=== PATIENT | male | born 1925 | race Caucasian/White ===

== ENCOUNTER 2016-07-10 07:03 | Inpatient (IN) | payer MEDICARE, OTHER ==
[2016-07-10] MEDS ORDERED: Adenosine* 3 MG/ML VIAL ONE (07:18)
[2016-07-10] MEDS ORDERED: Amiodarone 150 MG IVPREMIX* 150 MG/100 ML BAG IV ONE ×2 (07:27→08:31)
[2016-07-10] MEDS ORDERED: Hydrocortisone INJ* 100 MG VIAL ONE (07:33)
[2016-07-10] MEDS ORDERED: Amiodarone 360 MG IVPREMIX* 360 MG/200 ML BAG IV ONE ×2 (07:33→08:32)
[2016-07-10] MEDS ORDERED: Piperac/Tazob 3.375 gm in NS* 3.375 GM/100 ML BAG IVPB ONE ×3 (07:39→12:00)
[2016-07-10] MEDS ORDERED: NS 0.9% 1000 ML*IV.FLUID IV ONE (08:17)
[2016-07-10] MEDS ORDERED: Adenosine SYRINGE* 6 MG/2 ML IV PUSH ONE (08:22)
[2016-07-10 08:31] LABS: Hematocrit 45 % (42-52); Hemoglobin 14.6 g/dl (14.0-18.0); Mean Corpuscular HGB Conc 32 g/dl (31-36); Mean Corpuscular Hemoglobin 35 pg (27-31); Mean Platelet Volume 8 um3 (7.4-10.4); Red Blood Count 4.19 10^6/ul (4.0-5.4); Red Cell Distribution Width 19 % (10.5-15); White Blood Count 12.5 10^3/ul (3.5-10.8)
[2016-07-10 08:35] LABS: Add Diff/Slide Review? Slide Review Added; Comments Flag Yes; Mean Corpuscular Volume 108 fL (80-94)
[2016-07-10] MEDS ORDERED: Hydrocortisone INJ* 250 MG VIAL IV ONE (08:40)
[2016-07-10 08:41] LABS: Albumin 2.6 g/dL (3.2-5.2); BUN/Creatinine Ratio 20.8 (8-20); C Reactive Protein 22.57 mg/L (< 5.00); Calcium 8.4 mg/dL (8.6-10.3); EGFR African American 53.1 (>60); EGFR Non-African American 41.3 (>60); Globulin 3.4 g/dL (2-4); Total Bilirubin 0.9 mg/dL (0.2-1.0)
[2016-07-10 09:00] LABS: Troponin I 0.06 ng/mL (<0.04)
[2016-07-10] MEDS ORDERED: Amiodarone 360 MG IVPREMIX* 360 MG/200 ML BAG IV SCH ×2 (09:00→15:00)
[2016-07-10] MEDS: Hydrocortisone INJ* 100 MG VIAL IV SCH ×2 (09:00→20:42)
[2016-07-10 09:25] LABS: FIO2 100
[2016-07-10 09:32] LABS: PCO2 Arterial 15 mmHg (35-45)
--- NOTE | 2016-07-10 09:39 | RAD ---
Indication: Tachycardia. Single frontal view of the chest performed at 0840 hours was reviewed. Comparison is made with previous exam dated June 19, 2013. Cardiomegaly with bibasilar atelectasis is noted. Pacemaker leads are in place. No pneumothorax is noted. IMPRESSION: CARDIOMEGALY WITH BIBASILAR ATELECTASIS. NO PNEUMOTHORAX IS NOTED.
[2016-07-10 09:42] LABS: Eosinophils % 2 % (0-6); Immature Granulocytes 4 % (0-9); Macrocytosis 2+; Metamyelocytes % 1 % (0-2); Neutrophil % 74 % (38-83); Reactive Lymph % 2 % (0-6)
--- NOTE | 2016-07-10 09:54 | ED ---
Mckenna Fritz Michael, scribed for Phyllis Turcios MD on 07/10/16 at 0738 . Altered Mental Status - HPI Summary HPI Summary: 89 y/o male was BIBA to the ED presenting with AMS that started this morning. The pt reportedly was sepsis one month ago in [place], and he moved back to [facility] with his a few weeks ago. Since moving back, the pt has been at rehab and has become more confused recently. He also presents with rapid dysrhythmia and hematuria. Pt has a MOLST form showing he is a DNR. The pt is a level 5 caveat-Extremis - History Of Current Complaint Stated Complaint: GENERAL ILLNESS Hx Obtained From: Family/Curtain Stretcher Assembler - appears after initial encounter, provides more hx, EMS, Medical Records Hx From Patient Unobtainable Due To: Extremis Onset/Duration: Still Present Timing: Constant Severity Initially: Moderate Severity Currently: Moderate Character: Responsiveness Aggravating Factor(s): Unknown Alleviating Factor(s): Unknown Associated Signs And Symptoms: Negative: Negative - hematuria. dysrhythmia. AMS. 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 Denies: Hx Anticoagulant Therapy Cardiovascular History: Reports: Hx Pacemaker/ICD - PLACED 07/10/2013, Other Cardiovascular Problems/Disorders - EPISODES OF VTACH, CHEST IMPLANT TO CHECK HEARTRATE Denies: Hx Hypertension - low BP Respiratory History: Reports: Hx Sleep Apnea - uses oral appliance Denies: Hx Asthma, Hx Chronic Obstructive Pulmonary Disease (COPD) GI History: Reports: Other GI Disorders - colon polyps History: Reports: Hx Acute Renal Failure, Hx Benign Prostatic Hyperplasia Denies: Hx Renal Disease Musculoskeletal History: Reports: Hx Orthopedic Injury - (left) thumb amputation s/p injury, (left) ring finger/pinky crush injury Sensory History: Reports: Hx Contacts or Glasses, Hx Hearing Problem Denies: Hx Hearing Aid Opthamlomology History: Reports: Hx Contacts or Glasses Neurological History: Reports: Hx Dementia, Other Neuro Impairments/Disorders - memory problems Denies: Hx Seizures Psychiatric History: Denies: Hx Panic Disorder, Hx Substance Abuse - Surgical History Surgery Procedure, Year, and Place: IMPLANTABLE EVENT MONITOR IN HEART (OK'ED - SAFE 1.5 - DR BARRETO) - PT TO SEE OPS MANAGER PRIOR TO EXAM TO HAVE MONITOR REVIEWED. Patient saw customer service dispatcher on 02/12/13. PITUITARY REMOVED - 1969' AND 1993. 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 Hx Anesthesia Reactions: - unknown Infectious Disease History: Denies: Hx Hepatitis, Hx Human Immunodeficiency Virus (HIV) - Family History Known Family History: Positive: None - pt state negative Negative: Cardiac Disease, Hypertension, Diabetes - Social History Occupation: Retired Lives: With Family Alcohol Use: None Hx Substance Use: No Substance Use Type: Reports: None Hx Tobacco Use: No Smoking Status (MU): Never Smoked Tobacco Have You Smoked in the Last Year: No Review of Systems - ROS Summary Review of Systems Summary: limited due to level 5 caveat Positive: Other - dysrhythmia Positive: Shortness Of Breath - apparent Positive: hematuria Positive: Other - mottled Neurological: Other - AMS All Other Systems Reviewed And Are Negative: Yes Physical Exam Triage Information Reviewed: Yes Vital Signs On Initial Exam: Initial Vitals Temp Pulse Resp BP Pulse Ox 99.1 F 166 33 126/105 94 07/10/16 07:25 07/10/16 07:25 07/10/16 07:25 07/10/16 07:25 07/10/16 07:25 Vital Signs Reviewed: Yes Completion Of Physical Exam Limited Due To: Extremis, Level 5 Appearance: Positive: Ill-Appearing Skin: Positive: Dry, Mottled @ - extrem and neck Eyes: Positive: PHILIPP ENT: Positive: Other - oral appliance, dry mucosa Respiratory/Lung Sounds: Positive: Decreased Breath Sounds, Rhonchi, Other - accessory muscs of resp Cardiovascular: Positive: Tachycardia - irreg, narrow complex Abdomen Description: Positive: Soft. Negative: Distended, Pulsatile Mass Male Genital Exam: Positive: other - blood at urethra meatus Musculoskeletal: Positive: Other - using all accessory muscles. moving right extremity. Neurological: Positive: Other - nonverbal, respiratory distress. Negative: Alert, Oriented to Person Place, Time Psychiatric: Positive: Other - unresponsive, in extremis due to respiratory distress and rapid afib Diagnostics - Vital Signs Vital Signs Temp Pulse Resp BP Pulse Ox 07/10/16 07:40 221/146 07/10/16 07:35 202/172 07/10/16 07:30 99.1 F 155 33 152/137 75 07/10/16 07:25 99.1 F 166 33 126/105 94 - Laboratory Lab Results: Lab Results 07/10/16 07/10/16 07/10/16 Range/Units 07:30 07:30 07:30 WBC 12.5 H (3.5-10.8) 10^3/ul RBC 4.19 (4.0-5.4) 10^6/ul Hgb 14.6 (14.0-18.0) g/dl Hct 45 (42-52) % MCV 108 H (80-94) fL MCH 35 H (27-31) pg MCHC 32 (31-36) g/dl RDW 19 H (10.5-15) % Plt Count 188 (150-450) 10^3/ul MPV 8 (7.4-10.4) um3 Immature Gran % (Auto) 4 (0-9) % Neut % (Auto) 78.5 (38-83) % Lymph % (Auto) 20.7 L (25-47) % [place] % (Auto) 0.3 L (1-9) % Eos % (Auto) 0.3 (0-6) % Baso % (Auto) 0.2 (0-2) % Absolute Neuts (auto) 9.8 H (1.5-7.7) 10^3/ul Absolute Lymphs (auto) 2.6 (1.0-4.8) 10^3/ul Absolute Monos (auto) 0 (0-0.8) 10^3/ul Absolute Eos (auto) 0 (0-0.6) 10^3/ul Absolute Basos (auto) 0 (0-0.2) 10^3/ul Absolute Nucleated RBC 0.02 10^3/ul Neutrophils % 74 (38-83) % Band Neutrophils % 3 (0-8) % Lymphocytes % 16 L (25-47) % Reactive Lymphs % 2 (0-6) % Monocytes % 2 (0-13) % Eosinophils % 2 (0-6) % Metamyelocytes % 1 (0-2) % Nucleated RBC % 0.1 Normal RBC Morphology Not Reportable Macrocytosis 2+ INR (Anticoag Therapy) 2.01 H (0.89-1.11) APTT 29.6 (26.0-36.3) seconds Fibrinogen 303 (110.8-404.3) mg/dL Sodium 136 (133-145) mmol/L Potassium 4.0 (3.5-5.0) mmol/L Chloride 102 (101-111) mmol/L Carbon Dioxide 18 L (22-32) mmol/L Anion Gap 16 H (2-11) mmol/L BUN 33 H (6-24) mg/dL Creatinine 1.59 H (0.67-1.17) mg/dL Est GFR ( Amer) 53.1 (>60) Est GFR (Non-Af Amer) 41.3 (>60) BUN/Creatinine Ratio 20.8 H (8-20) Glucose 119 H (70-100) mg/dL Lactic Acid (0.5-2.0) mmol/L Calcium 8.4 L (8.6-10.3) mg/dL Total Bilirubin 0.90 (0.2-1.0) mg/dL AST 40 H (13-39) U/L ALT 55 H (7-52) U/L Alkaline Phosphatase 133 H (34-104) U/L Total Creatine Kinase 40 (10-223) U/L Troponin I 0.06 H* (<0.04) ng/mL C-Reactive Protein 22.57 H (< 5.00) mg/L B-Natriuretic Peptide ( - 100) pg/mL Total Protein 6.0 L (6.4-8.9) g/dL Albumin 2.6 L (3.2-5.2) g/dL Globulin 3.4 (2-4) g/dL Albumin/Globulin Ratio 0.8 L (1-3) 07/10/16 07/10/16 Range/Units 07:30 07:30 WBC (3.5-10.8) 10^3/ul RBC (4.0-5.4) 10^6/ul Hgb (14.0-18.0) g/dl Hct (42-52) % MCV (80-94) fL MCH (27-31) pg MCHC (31-36) g/dl RDW (10.5-15) % Plt Count (150-450) 10^3/ul MPV (7.4-10.4) um3 Immature Gran % (Auto) (0-9) % Neut % (Auto) (38-83) % Lymph % (Auto) (25-47) % [place] % (Auto) (1-9) % Eos % (Auto) (0-6) % Baso % (Auto) (0-2) % Absolute Neuts (auto) (1.5-7.7) 10^3/ul Absolute Lymphs (auto) (1.0-4.8) 10^3/ul Absolute Monos (auto) (0-0.8) 10^3/ul Absolute Eos (auto) (0-0.6) 10^3/ul Absolute Basos (auto) (0-0.2) 10^3/ul Absolute Nucleated RBC 10^3/ul Neutrophils % (38-83) % Band Neutrophils % (0-8) % Lymphocytes % (25-47) % Reactive Lymphs % (0-6) % Monocytes % (0-13) % Eosinophils % (0-6) % Metamyelocytes % (0-2) % Nucleated RBC % Normal RBC Morphology Macrocytosis INR (Anticoag Therapy) (0.89-1.11) APTT (26.0-36.3) seconds Fibrinogen (110.8-404.3) mg/dL Sodium (133-145) mmol/L Potassium (3.5-5.0) mmol/L Chloride (101-111) mmol/L Carbon Dioxide (22-32) mmol/L Anion Gap (2-11) mmol/L BUN (6-24) mg/dL Creatinine (0.67-1.17) mg/dL Est GFR ( Amer) (>60) Est GFR (Non-Af Amer) (>60) BUN/Creatinine Ratio (8-20) Glucose (70-100) mg/dL Lactic Acid 10.4 H* (0.5-2.0) mmol/L Calcium (8.6-10.3) mg/dL Total Bilirubin (0.2-1.0) mg/dL AST (13-39) U/L ALT (7-52) U/L Alkaline Phosphatase (34-104) U/L Total Creatine Kinase (10-223) U/L Troponin I (<0.04) ng/mL C-Reactive Protein (< 5.00) mg/L B-Natriuretic Peptide 470 H ( - 100) pg/mL Total Protein (6.4-8.9) g/dL Albumin (3.2-5.2) g/dL Globulin (2-4) g/dL Albumin/Globulin Ratio (1-3) Result Diagrams: 07/10/16 07:30 07/10/16 07:30 Lab Statement: Any lab studies that have been ordered have been reviewed, and results considered in the medical decision making process. - EKG EK EKG Rhythm: Atrial Fibrillation - 162 bpm EKG Interpretation: nml QTc-441. nml QT-268. QRS:-22. st depression. Altered Mental Statu Course/Dx - Course Course Of Treatment: Dr. Jessica ([facility]hold [facility]) consulted with the patient and accepts the patient. Patient was given 150mg amiodarone and will be brought to the ICU. Critical care not documented by ED physician, as Dr. Jessica in the room within minutes and assumes care of this critial patient. - Diagnoses Discharge Diagnoses: Rapid atrial fibrillation, Respiratory distress, acute, Hematuria - Provider Notifications Instructed by Provider To: Admit As Inpatient Discharge - Discharge Plan Condition: Critical Disposition: ADMITTED TO [facility] Discharge Disposition Comment: Dr. Jessica accepts pt as admission. The documentation as recorded by the Mckenna justice Michael accurately reflects the service I personally performed and the decisions made by , Phyllis Turcios MD.
[2016-07-10] MEDS: Piperac/Tazob 3.375 gm in NS* 3.375 GM/100 ML BAG IVPB SCH ×2 (12:15→19:45)
[2016-07-10] MEDS: fentaNYL* 50 MCG/ML 2 ML VIAL (100 MCG VIAL) IV PRN ×3 (12:44→18:05)
--- NOTE | 2016-07-10 13:30 | HP ---
ADMISSION HISTORY AND PHYSICAL: DATE OF ADMISSION: 07/10/16 REASON FOR ADMISSION: Possible septic shock. 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 On arrival, the patient was in rapid atrial fibrillation and was also hypotensive and hypoxic. Was placed on high-flow humidified nasal oxygen and was given intravenous fluids as well as amiodarone for the heart rate. White count was slightly elevated, and the presumptive diagnosis of sepsis/possible septic shock from a UTI, was entertained and the patient was given a dose of Zosyn. The patient is DNR/DNI per a living will ( according to the ). Blood pressure was labile, and (because of the history of hypopituitarism), the patient was given 200 mg of hydrocortisone IV, and was brought to the ICU. OUTPATIENT MEDICATIONS: 1. Cholecalciferol 1000 units daily. 2. Finasteride 5 mg daily. 3. Furosemide 40 mg daily. 4. Hydrocortisone 20 mg three times daily. 5. Levothyroxine 75 mcg daily. 6. Pravastatin 10 mg daily. 7. Bactrim DS b.i.d. started on June 26 to last for 14 days. 8. Coumadin 5 mg every other day. 9. Hydrocortisone as mentioned. ALLERGIES: There are no known drug allergies. SOCIAL HISTORY: The patient is and has lived with his until a few months ago, when he was placed in the half-way because of inability to care for himself. There is no known history of alcohol or drug abuse. REVIEW OF SYSTEMS: Unobtainable. PHYSICAL EXAMINATION GENERAL: The patient was tachypneic and unresponsive to verbal commands. VITAL SIGNS: Temp was 99.1 temporal, heart rate 26, blood pressure 98/50, O2 sat 90% on 100% FiO2 by high-flow humidified nasal cannula. HEENT: Pupils mid-position and responsive. Corneals intact bilaterally. No facial asymmetry. NECK: Supple. No apparent jugular venous distention or masses. LUNGS: Coarse rhonchi bilaterally. No crackles. CARDIAC: Irregularly irregular rhythm with 1-2/6 early systolic murmur heard throughout the precordium. ABDOMEN: Not distended. Bowel sounds hypoactive. EXTREMITIES: Warm. No cyanosis or edema. NEUROLOGIC: Difficult to complete, but there were no apparent focal findings or cranial nerve deficits. OTHER: Tucker catheter was in place and there was an obstructive thrombus noted in the catheter. DIAGNOSTIC STUDIES/LAB DATA: Significant for a white count of 12.5, INR of 2, serum lactate of 10.4 with a bicarb of 18 with an anion gap of 16. BUN was 33 and creatinine 1.6. Albumin was 2.6. Chest x-ray showed bilateral pleural effusions, but no apparent infiltrates. Urinalysis is pending. EKG showed atrial fibrillation. OVERALL IMPRESSION: At this point, septic shock is the most likely diagnosis, and the urine is the most likely source. The lactate of 10.4 carries a poor prognosis. Although one must consider an intracerebral hemorrhage because of the anticoagulation, there are no focal findings, and thus this seems unlikely. MANAGEMENT PLAN: The plan will consist primarily of fluids, antibiotics, pressors if necessary, and steroids because of the history of hypopituitarism. We will replace the Synthroid and vitamin D, but we will start that tomorrow. We will check serial lactates to follow progress. I do not think a head CT is necessary at this time, particularly with the patient being unstable. Prognosis is poor, and the patient's has been informed of such. CRITICAL CARE TIME: 75 minutes. [id number]/CPS #: [id number] MTDD
[2016-07-10] MEDS ORDERED: HYDROmorphone* 1 MG/ML 1 ML SYR IV PRN (18:57)
[2016-07-10] MEDS ORDERED: HYDROmorphone* 1 MG/ML 1 ML SYR IV ONE (19:00)
[2016-07-10] MEDS ORDERED: Norepinephrine 16MCG/ML IVPRE* 4,000 MCG/250 ML BAG IV ONE (20:48)
[2016-07-10] MEDS ORDERED: Norepinephrine 16MCG/ML IVPRE* 4,000 MCG/250 ML BAG IV SCH (23:00)
[2016-07-11] MEDS: HYDROmorphone* 1 MG/ML 1 ML SYR IV PRN ×5 (00:38→22:49)
[2016-07-11] MEDS: Piperac/Tazob 3.375 gm in NS* 3.375 GM/100 ML BAG IVPB SCH ×3 (03:59→20:19)
[2016-07-11 05:41] LABS: Hematocrit 39 % (42-52); Hemoglobin 12.4 g/dl (14.0-18.0); Mean Corpuscular HGB Conc 32 g/dl (31-36); Mean Corpuscular Hemoglobin 34 pg (27-31); Mean Platelet Volume 9 um3 (7.4-10.4); Red Cell Distribution Width 20 % (10.5-15)
[2016-07-11 05:51] LABS: Comments Flag Yes
[2016-07-11 05:52] LABS: Mean Corpuscular Volume 108 fL (80-94); White Blood Count 41.9 10^3/ul (3.5-10.8)
[2016-07-11 06:01] LABS: Calcium 7.6 mg/dL (8.6-10.3); EGFR African American 53.1 (>60); EGFR Non-African American 41.3 (>60); Potassium 4.3 mmol/L (3.5-5.0)
--- NOTE | 2016-07-11 07:57 | RAD ---
HISTORY: Hypoxia COMPARISONS: July 10, 2016 VIEWS:1: Single frontal portable view of the chest at 4:43 AM FINDINGS: LINES AND TUBES: Left-sided pacemaker is noted CARDIOMEDIASTINAL SILHOUETTE: The cardiac silhouette is enlarged. The cardiomediastinal silhouette is otherwise normal for portable technique. PLEURA: The costophrenic angles are sharp. No pleural abnormalities are noted. LUNG PARENCHYMA: There is a mild diffuse reticular pattern with indistinct pulmonary vessels. There is improved aeration of the right lower lung. There is linear opacification left lower lung ABDOMEN: The upper abdomen is clear. There is no subphrenic gas. BONES AND SOFT TISSUES: No bone or soft tissue abnormalities are noted. IMPRESSION: 1. CARDIOMEGALY. 2. MILD PULMONARY INTERSTITIAL EDEMA. 3. LINEAR ATELECTASIS OF THE LEFT LUNG BASE
[2016-07-11] MEDS: Levothyroxine INJ* 100 MCG/5 ML VIAL IV SCH (08:09)
[2016-07-11] MEDS: Hydrocortisone INJ* 100 MG VIAL IV SCH ×2 (08:10→20:32)
[2016-07-11 08:55] LABS: Erythrocyte Sed Rate 23 mm/Hr (0-40)
[2016-07-11] MEDS ORDERED: Metoprolol Tartrate IV* 1 MG/ML 5 ML VIAL IV PRN (13:54)
--- NOTE | 2016-07-11 14:10 | PN ---
Critical Care Services: Mental status still poor, but now off amiodarone and levophed. Vital Signs: Temp Pulse Resp BP SpO2 FiO2 97.6 F 76 17 92/67 97 80 Physical Exam: Gen:Unresponsive to verbal commands, but opens eyes HEENT:No facial asymmetry Lungs:Scattered rhonchi Extremities:Warm. +kneecap cyanosis. No edema. Neuro:Opens eyes occasionally to shouted commands. Fluid Balance (Past 24 Hours): 07/11/16 06:59 Intake Total 7016 Output Total 810 Balance +6206 Weight 213 lb 3oz Intake: IV Fluids 6195 ABX - PIPERACILLIN 107 LR 6088 IVPB ABX - PIPERACILLIN Medicated IV 821 CC - Norepinephrine/ 258 Levophed amiodarone 563 Output: Tucker 810 Other: Estimated Void Small # Bowel Movements Estimated Stool Amount Labs: Laboratory Results - last 24 hr 07/10/16 07/10/16 07/11/16 13:08 13:45 05:25 Sodium 137 Potassium 4.3 Chloride 107 Carbon Dioxide 17 BUN 35 Creatinine 1.59 Glucose 170 H Lactic Acid 7.2 Influenza A (Rapid) Negative Influenza B (Rapid) Negative 07/11/16 05:25 WBC 41.9 RBC 3.60 Hgb 12.4 Hct 39 L MCV 108 MCH 34 H MCHC 32 RDW 20 H Plt Count 164 MPV 9 ESR 23 Lactic Acid 6.5 Studies: E. coli in 2 blood cultures Nutrition: NPO Impression: Gram-negative septicemia - probably from UTI. Persistent lactic acidosis is disturbing. ? could this patient have thiamine deficiency (encephalopathy plus unexplained lactic acidosis)? Plan: Continue current antibiotic Rx, and start yu,ine - 100 mg daily. if patient does not improve MS over next 24 hrs, will do CT scan. Critical Care Time: 35 minutes
[2016-07-11] MEDS: Thiamine IV* 100 MG/ML 2 ML VIAL IV SCH (14:15)
[2016-07-12] MEDS: Piperac/Tazob 3.375 gm in NS* 3.375 GM/100 ML BAG IVPB SCH ×3 (03:50→20:14)
[2016-07-12] MEDS: HYDROmorphone* 1 MG/ML 1 ML SYR IV PRN ×2 (05:05→18:38)
[2016-07-12] MEDS: Levothyroxine INJ* 100 MCG/5 ML VIAL IV SCH (05:40)
[2016-07-12 06:16] LABS: Comments Flag Yes; Hematocrit 37 % (42-52); Hemoglobin 12.1 g/dl (14.0-18.0); Mean Corpuscular HGB Conc 32 g/dl (31-36); Mean Corpuscular Hemoglobin 35 pg (27-31); Mean Corpuscular Volume 107 fL (80-94); Mean Platelet Volume 9 um3 (7.4-10.4); Red Blood Count 3.49 10^6/ul (4.0-5.4); Red Cell Distribution Width 20 % (10.5-15)
[2016-07-12 06:26] LABS: BUN/Creatinine Ratio 29.3 (8-20); Blood Urea Nitrogen 34 mg/dL (6-24); CO2 Carbon Dioxide 21 mmol/L (22-32); Calcium 7.9 mg/dL (8.6-10.3); Chloride 110 mmol/L (101-111); EGFR African American 76.4 (>60); EGFR Non-African American 59.4 (>60); Glucose 97 mg/dL (70-100); Sodium 139 mmol/L (133-145)
[2016-07-12] MEDS: Thiamine IV* 100 MG/ML 2 ML VIAL IV SCH (07:44)
[2016-07-12] MEDS: Hydrocortisone INJ* 100 MG VIAL IV SCH ×2 (07:44→20:14)
--- NOTE | 2016-07-12 09:49 | PN ---
Critical Care Services: New Information: the E.coli in this case is ESBL-producing. The organism, however, is sensitive to the Zosyn being used as Rx. The patient remains afebrile, and is more alert today (answers questions now). Vital Signs: Temp Pulse Resp BP SpO2 FiO2 97.6 F 94 11 122/62 96 80 Physical Exam: Gen:Much more alert today. Opens eyes and speaks in reponse to verbal commands. Lungs:Occasional coarse rhonchi Extremities: Warm. 1+edema. Fluid Balance (Past 24 Hours): 07/12/16 06:59 Intake Total 1839 Output Total 800 Balance +1039 Weight 211 lb Intake: IV Fluids 1396 ABX - PIPERACILLIN 118 LR 1233 NS (0.9%) 45 IVPB 320 ABX - PIPERACILLIN 200 LR 80 NS (0.9%) 40 Medicated IV 123 CC - Norepinephrine/ 82 Levophed amiodarone 41 Oral 0 Output: Tucker 800 Other: Estimated Void # Bowel Movements 1 Estimated Stool Amount Small Labs: 07/12/16 07/12/16 05:29 06:38 WBC 35 Hgb 12.1 Hct 37 Plt Count 131 Sodium 139 Potassium TNP 2.8 L Chloride 110 Carbon Dioxide 21 BUN 34 Creatinine 1.16 Glucose 97 Lactic Acid 2.1 Calcium 7.9 C-React Prot High Sens 253.77 NOTE: Lactate was 10.4 on admission. Studies: None today Nutrition: Attempting oral feedings Impression: E. coli septicemia with ESBL-producing organism - appears to be responding to Rx with Pip-Tazo, and lactate has (almost) normalized since admission. Chronic problems include: 1. Dementia 2. Afib 3. 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 Plan: 1. Contact isolation 2. Correct hypokalemia with IV KCL and MgSO4. 3. I have not restarted coumadin (for the AFIB), and do not feel this should be continued (in light of patient's dementia). Critical Care Time: 35 minutes
[2016-07-12] MEDS ORDERED: Magnesium Sulfate 2 GM IV* 2 GM/50 ML BAG IVPB ONE (09:51)
[2016-07-12] MEDS ORDERED: Magnesium Sulfate 2 GM IV* 2 GM/50 ML BAG ONE (09:53)
[2016-07-12] MEDS: KCL 20 MEQ/100 ML IVPREMIX* 20 MEQ/100 ML BAG IV SCH ×4 (11:59→17:24)
[2016-07-12] MEDS ORDERED: KCL 20 MEQ/100 ML IVPREMIX* 20 MEQ/100 ML BAG ONE (17:17)
[2016-07-13] MEDS: Piperac/Tazob 3.375 gm in NS* 3.375 GM/100 ML BAG IVPB SCH ×3 (03:38→20:52)
[2016-07-13] MEDS: Levothyroxine INJ* 100 MCG/5 ML VIAL IV SCH (06:17)
[2016-07-13 06:38] LABS: Hematocrit 39 % (42-52); Hemoglobin 12.5 g/dl (14.0-18.0); Mean Corpuscular HGB Conc 32 g/dl (31-36); Mean Corpuscular Hemoglobin 35 pg (27-31); Mean Platelet Volume 9 um3 (7.4-10.4); Red Blood Count 3.61 10^6/ul (4.0-5.4); Red Cell Distribution Width 20 % (10.5-15)
[2016-07-13 06:39] LABS: Comments Flag Yes; Mean Corpuscular Volume 108 fL (80-94)
[2016-07-13 06:40] LABS: White Blood Count 30.7 10^3/ul (3.5-10.8)
[2016-07-13 06:55] LABS: BUN/Creatinine Ratio 37.1 (8-20); Blood Urea Nitrogen 39 mg/dL (6-24); CO2 Carbon Dioxide 24 mmol/L (22-32); Calcium 8.4 mg/dL (8.6-10.3); Chloride 100 mmol/L (101-111); EGFR African American 85.7 (>60); EGFR Non-African American 66.7 (>60); Glucose 62 mg/dL (70-100); Sodium 129 mmol/L (133-145)
--- NOTE | 2016-07-13 08:28 | RAD ---
HISTORY: Hypoxia COMPARISONS: July 11, 2016 VIEWS:1: Single frontal portable view of the chest at 7:45 AM FINDINGS: LINES AND TUBES: There is left-sided pacemaker CARDIOMEDIASTINAL SILHOUETTE: The cardiac silhouette is enlarged. The cardiomediastinal silhouette is otherwise normal for portable technique. PLEURA: The costophrenic angles are sharp. No pleural abnormalities are noted. LUNG PARENCHYMA: The lungs are clear. ABDOMEN: The upper abdomen is clear. There is no subphrenic gas. BONES AND SOFT TISSUES: No bone or soft tissue abnormalities are noted. IMPRESSION: CARDIOMEGALY
--- NOTE | 2016-07-13 08:42 | PN ---
Subjective Date of Service: 07/13/16 Interval History: This is an 89 yo gentleman transferred from the ICU yesterday evening where he was treated for septic shock secondary to ESBL EColi septicemia. Patient was encephalopathic for the first 2 days of his admission and LOC began to improve yesterday. Patient was quite restless overnight, pulling at his Tucker catheter. He had an episode of desaturation overnight, attempted support with CPAP, which patient removed from his face. He was also noted to be hypothermic with temp 96.6, bearhugger was placed, but it was not tolerated. Patient failed a swallow eval yesterday. This am, he is requesting a glass of water. Objective Active Medications: Fentanyl Citrate (Fentanyl*) 50 mcg IV Q2H PRN PRN Reason: PAIN Last Admin: 07/10/16 18:05 Dose: 50 mcg Hydrocortisone Sodium Succinate (Solu-Cortef*) 100 mg IV DAILY ANGEL LUIS Hydromorphone HCl (Dilaudid Iv*) 1 mg IV Q2H PRN PRN Reason: PAIN Last Admin: 07/12/16 18:38 Dose: 1 mg Norepinephrine Bitartrate (Levophed 16 Mcg/Ml Premix Bag*) 4,000 mcg in 250 mls @ 0 mls/hr IV .INITIAL RATE ANGEL LUIS; 0 MCG/MIN PRN Reason: Protocol Last Admin: 07/11/16 04:48 Dose: 26 mls/hr Piperacillin Sod/Tazobactam Sod (Zosyn 3.375 Gm In Ns Premix*) 3.375 gm in 100 mls @ 25 mls/hr IVPB Q8H ANGEL LUIS Last Admin: 07/13/16 03:38 Dose: 25 mls/hr Lactated Ringer's (Lactated Ringers 1000 Ml Bag*) 1,000 mls @ 75 mls/hr IV PER RATE ANGEL LUIS Levothyroxine Sodium (Synthroid Inj*) 37.5 mcg IV 0600 ANGLE LUIS Last Admin: 07/13/16 06:17 Dose: Not Given Metoprolol Tartrate (Lopressor Iv*) 5 mg IV Q6H PRN PRN Reason: TACHYCARDIA Thiamine HCl (Vitamin B1 Iv*) 100 mg IV DAILY ANGEL LUIS Last Admin: 07/12/16 07:44 Dose: 100 mg Vital Signs: Temp Pulse Resp BP Pulse Ox 97.2 F 93 14 126/79 95 07/13/16 06:25 07/13/16 08:18 07/13/16 08:18 07/13/16 08:18 07/13/16 08:27 Oxygen Devices in Use Now: Nasal Cannula Appearance: Elderly male, alert, requests a glass of water, doesn't completely answer all questions Ears/Nose/Mouth/Throat: - - MM appear dry Neck: NL Appearance and Movements; NL JVP Respiratory: Symmetrical Chest Expansion and Respiratory Effort, Clear to Auscultation Cardiovascular: NL Sounds; No Murmurs; No JVD, RRR Extremities: No Edema Skin: - - skin appears slightly dry Neurological: - - alert, but not oriented, confused and appears slightly uncomfortable Result Diagrams: 07/13/16 03:30 07/13/16 03:30 Additional Lab and Data: Vital Signs: Temp Pulse Resp BP Pulse Ox 97.2 F 93 14 126/79 95 07/13/16 06:25 07/13/16 08:18 07/13/16 08:18 07/13/16 08:18 07/13/16 08:27 Microbiology and Other Data: Microbiology 07/10/16 13:45 Nasal Screen MRSA (PCR)(CINTHIA) - Final Nasal Mrsa Negative 07/10/16 13:45 Influenza Types A,B Antigen (CINTHIA) - Final Nasal Specimen received for Influenza A/B Molecular testing Diagnostic Imaging: CXR 07/13 - NAD, cardiomegaly Assess/Plan/Problems-Billing Assessment: - Patient Problems (1) Septic shock Comment: Resolved Lactic acidosis has finally resolved (2) E. coli septicemia Comment: ESBL producing organism Likely urinary origin, although urine culture has not been completed Will repeat blood cultures tomorrow Cont Zosyn (3) Hypoxia Comment: Appears slightly hypovolemic CXR and lung exam clear Will obtain echocardiogram (4) RICHARD (acute kidney injury) Comment: resolving Secondary to sepsis (5) Encephalopathy Comment: Improving Likely toxic secondary to sepsis (6) Dysphagia Comment: Likely related to resolving encephalopathy Failed swallow evaluation with speech therapy yesterday Patient will be re-evaluated today Maintain NPO status at this time (7) Atrial fibrillation Comment: Rate controlled Anticoagulation has been held at admission Question resuming anticoagulation due to bleeding risk related to fall risk secondary to dementia (8) Postoperative hypopituitarism Comment: Receiving stress dose hydrocortisone Will start to taper hydrocortisone (9) BPH (benign prostatic hyperplasia) Comment: Tucker in place with frequent UTIs Status and Disposition: Inpatient
[2016-07-13] MEDS: Hydrocortisone INJ* 100 MG VIAL IV SCH (09:09)
[2016-07-13] MEDS: Thiamine IV* 100 MG/ML 2 ML VIAL IV SCH (09:09)
[2016-07-13] MEDS: HYDROmorphone* 1 MG/ML 1 ML SYR IV PRN (13:28)
[2016-07-13 16:51] LABS: PCO2 Arterial 33 mmHg (35-45)
--- NOTE | 2016-07-13 17:23 | ECHO ---
Patient: PHANI BUENROSTRO [facility] Rec#: [id number] : 1925 Date: 07/13/2016 Age: 89y Height: 185.42 cm / 73.0 in Weight: 95.71 kg / 210.9 lbs Sex: M BSA: 2.2 Room#: 403 Admit Date#: 07/10/2016 Type: Inpatient Referring: Thee Cage Reading: Bladimir Crenshaw MD Marketing Services Manager: Jane Whiteside RDCS,RDMS Marketing Services Manager: Lucita Cheney CC: Gonzalo Kan MD Transthoracic Echocardiogram Indication: Hypoxia, a-fib BP: 126/79 HR: 84 Rhythm: A-Fib Indications Atrial Fibrillation Findings History: A-fib, hypopituitarism, 1-2/6 early systolic murmur. Technical Comments: The study quality is fair. The study was technically limited due to the patient's inability to lay in the left lateral decubitus position. Completed at 1530. Left Ventricle: The left ventricular chamber size is normal. Mild to moderate concentric left ventricular hypertrophy is observed. There is diffuse global hypokinesis of the left ventricle. There is severely decreased left ventricular systolic function. The estimated ejection fraction is 20-25%. The assessment of diastolic function is non-diagnostic. Left Atrium: The left atrium is severely dilated. Right Ventricle: The right ventricular cavity size is normal. The right ventricular global systolic function is mildly to moderately reduced. Right Atrium: The right atrium is moderate to severely dilated. Aortic Valve: The aortic valve is trileaflet. The aortic valve leaflets are moderately thickened. There is evidence of aortic sclerosis without stenosis. There is a trace of aortic regurgitation. There is no evidence of aortic stenosis. Mitral Valve: The mitral valve leaflets are moderately thickened. There is mild mitral valve prolapse. There is moderate mitral regurgitation. Central and eccentric jets. The MR may be moderate to severe. There is no evidence of mitral stenosis. Tricuspid Valve: The tricuspid valve leaflets are normal. There is moderate tricuspid regurgitation. The right ventricular systolic pressure is estimated at 39 mmHg. It may be underestimated; IVC not visualized. There is evidence of mild pulmonary hypertension. There is no tricuspid stenosis. Pulmonic Valve: The pulmonic valve appears normal. There is mild pulmonic regurgitation. There is no pulmonic stenosis. Pericardium: There is no significant pericardial effusion. A pericardial fat pad is visualized. Aorta: There is mild dilatation of the ascending aorta. There is no dilatation of the aortic arch. There is mild dilatation of the aortic root. Pulmonary Artery: The main pulmonary artery appears normal. Venous: The venous system is not well visualized. The inferior vena cava is not visualized. Summary: There was not any prior study for comparison. Conclusions Atrial fibrillation. Mild to moderate concentric left ventricular hypertrophy is observed. There is diffuse global hypokinesis of the left ventricle. There is severely decreased left ventricular systolic function. The estimated ejection fraction is 20-25%. The left atrium is severely dilated. The right atrium is moderate to severely dilated. There is evidence of aortic sclerosis without stenosis. There is a trace of aortic regurgitation. There is moderate mitral regurgitation; Central and eccentric jets. The MR may be moderate to severe. There is moderate tricuspid regurgitation. There is mild pulmonic regurgitation. There is mild dilatation of the ascending aorta. The right ventricular systolic pressure is estimated at 39 mmHg. It may be underestimated; IVC not visualized. Measurements Name Value Normal Range RVIDd (AP) 2D 2.45 cm (0.9 - 2.6) RVDdMajor (2D) 3.3 cm (2.2 - 4.4) RAd ISD 4CH 6 cm (3.4 - 4.9) RA (A4C)W 5.9 cm (2.9 - 4.6) IVSd (2D) 1.3 cm (0.6 - 1) LVPWd (2D) 1.3 cm (0.6 - 1) LVIDd (2D) 4.7 cm (3.6 - 5.4) LVIDs (2D) 4.55 cm - LV FS (2D) 4 % (25 - 45) Aortic Annulus 2.3 cm (1.4 - 2.6) Ao root diameter (2D) 3.8 cm (2.1 - 3.5) Ascending Ao 3.6 cm (2.1 - 3.4) Aortic arch 3 cm (1.8 - 3.4) LA dimension (AP) 2D 4.8 cm (2.3 - 3.8) LAd ISD 4CH 6.5 cm (2.9 - 5.3) LA ISD 4CH W 5.2 cm (2.5 - 4.5) Name Value Normal Range LA ESV SP 4CH (A/L) 138 ml - LA ESV SP 2CH (A/L) 126 ml - LA ESV BP (A/L) 136 ml - LA ESV BP (A/L) index 61.65 ml/m2 - LA ESV SP 4CH (MOD) 130 ml - LA ESV SP 2CH (MOD) 118 ml - Name Value Normal Range MV E-wave Vmax 0.66 m/sec - MV deceleration time 203 msec - LV septal e' Vmax 0.06 m/sec - LV lateral e' Vmax 0.07 m/sec - LV E:e' septal ratio 11 ratio - LV E:e' lateral ratio 9.43 ratio - Name Value Normal Range AV Vmax 0.67 m/sec - AV VTI 16.68 cm - AV peak gradient 2.3 mmHg - AV mean gradient 1.4 mmHg - LVOT Vmax 0.53 m/sec - LVOT VTI 10.56 cm - LVOT peak gradient 1.15 mmHg - LVOT mean gradient 0.72 mmHg - SV LVOT 56.6 ml - DEE Vmax 0.4 m/sec - Name Value Normal Range MR Vmax 4.7 m/sec - MR VTI 144 cm - Name Value Normal Range TR Vmax 2.78 m/sec - TR peak gradient 31 mmHg - RVSP 39 mmHg - Name Value Normal Range PV Vmax 0.51 m/sec - PV peak gradient 1.06 mmHg -
--- NOTE | 2016-07-13 17:35 | RAD ---
INDICATION: Possible aspiration. COMPARISON: Comparison is made with a prior chest x-ray study from July 13, 2016. TECHNIQUE: A portable view of the chest was obtained. FINDINGS: There is a transvenous pacemaker present. The heart is moderately enlarged and unchanged from the prior exam. The lungs are underinflated. There is minimal increased density at the right lung base most consistent with atelectasis. No pleural effusion is seen. IMPRESSION: EXPIRATORY EXAM, SMALL RIGHT BASILAR INFILTRATE SUGGESTIVE OF ATELECTASIS.
[2016-07-13] MEDS ORDERED: HYDROmorphone* 1 MG/ML 1 ML SYR IV PRN (18:00)
--- NOTE | 2016-07-13 18:06 | PN ---
Hospitalist Progress Note Patient received Dilaudid in early afternoon and became quite somnolent with some change to his respiratory pattern. ABG and CXR were ordered. ABG showed no CO2 retention, essentially WNL. CXR suggested possible small R basilar infiltrate. Patient is currently on Zosyn which would adequately cover most aspiration pathogens. Will plan to repeat labs in am. Somnolence likely due to Dilaudid, no significant respiratory compromise. Briefly discussed wishes with patient's , Sandra. She was interested in learning more about Hospice services, but would like his care to continue unchanged at this time and return to [facility] for continued rehab when appropriate and then consider Hospice at that time. Had a zoe discussion with her that he may not recover to his prior level of function despite maximum intervention, she acknowledged that.
[2016-07-13] MEDS ORDERED: Haloperidol INJ IV/IM* 5 MG/ML AMP IV ONE (20:28)
[2016-07-13] MEDS ORDERED: QUEtiapine TAB* 25 MG PO SCH (21:00)
--- NOTE | 2016-07-13 21:42 | CONS ---
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 On admission, the patient was confirmed a DNR/DNI. He was admitted to the pathology collector service, placed on broad spectrum antibiotics, IV fluids, steroids, and he was transferred out to the floor on 07/13/16 and he did pass a swallow eval today, but he has remained with his mental status waxing and waning. I am unable to awake him with any meaningful interaction. He is unable to follow any commands and I called his , but I was unable to get in touch with her. His albumin is 2.6 on admission. He presented with acute kidney injury as well on admission. Otherwise, unable to obtain review of systems. PAST MEDICAL HISTORY: 1. Panhypopituitarism. 2. History of atrial fibrillation. 3. BPH. 4. Recurrent UTIs. 5. Hypothyroidism. 6. Hyperlipidemia. MEDICATIONS: 1. Hydromorphone 1 mg q.2 hours p.r.n. 2. Hydrocortisone 100 mg IV daily. 3. Lactated Ringer's 75 cc an hour. 4. Synthroid 37.5 mcg IV daily. 5. Metoprolol tartrate 5 mg IV q.6 hours as needed. 6. Zosyn q.8 hours. 7. Thiamine IV 100 mg daily. ALLERGIES: No known drug allergies. SOCIAL HISTORY: As mentioned, the patient recently in resident at [facility]. He is . His is his healthcare proxy. Her name is Sandra Jose. As mentioned, the patient is a DNR/DNI. REVIEW OF SYSTEMS: Unable to obtain. FAMILY HISTORY: Unable to obtain. PHYSICAL EXAMINATION: Vital Signs: Temp 97.5, pulse rate 80, respiratory rate is 16, oxygen saturation 100% on 5 L, blood pressure is 123/69. General: The patient is somnolent. He will awake to tactile stimulation by opening eyes and gasping for air and abdominal breathing and then fall back asleep. HEENT: Neck is supple. No lymphadenopathy. Pupils are pinpoint, reactive, and anicteric. Head: Normocephalic. Mucous membranes are dry. Cardiac: Irregularly irregular rate and rhythm. Soft systolic murmur. Respiratory: Rhonchorous upper airway course breath sounds. Abdomen: Morbidly obese, soft, and nontender. Extremities: No clubbing, cyanosis, or edema. +1 DPs. Neurologic: The patient is minimally responsive and unable to follow any commands. LABORATORY DATA: White count 30.7, hemoglobin 12.5, hematocrit 39, platelets 126. Sodium 129, potassium not reported today, chloride 100, BUN 39, creatinine 1.05. Radiographic data on 07/13/16 showed cardiomegaly. ASSESSMENT: This is an 89-year-old male with past medical history of hypopituitarism, atrial fibrillation who presented to the emergency room from [facility] on 07/10/16 with sepsis likely secondary to urinary tract infection, was admitted to the ICU, placed on broad spectrum antibiotics and steroids and he was transferred out to the floor today. On my encounter, the patient is minimally responsive. I am concerned for possibly aspirating from his swallow evaluation today. The other concern is he did get Dilaudid earlier today likely contributing to his somnolence. This could be a component of hypercapnic respiratory failure. It is unclear what his baseline is as I am unable to get in touch with his . Based on his comorbidities and his ICU admission, his albumin of 2.6, he is potential a candidate for hospice, but I need to discuss with his further regarding his clinical condition and his stay at [facility]. I have spoken with Thee Cage, who is in charge of him and did discuss to update his clinical status and probably warrants a further workup for possible hypercapnic respiratory failure and further evaluation and she is going to evaluate the patient as well and I will try again to get in touch with the . Thank you for this consultation. I will follow along with you. TIME SPENT: Greater than 90 minutes were spent doing the consultation, more than half the time was spent in direct patient contact. CC: Gonzalo Kan MD* [id number]/CPS #: [id number] MTDD
[2016-07-14] MEDS: Piperac/Tazob 3.375 gm in NS* 3.375 GM/100 ML BAG IVPB SCH ×3 (03:16→19:55)
[2016-07-14] MEDS: Levothyroxine INJ* 100 MCG/5 ML VIAL IV SCH (06:20)
[2016-07-14 07:33] LABS: Comments Flag Yes; Hematocrit 38 % (42-52); Hemoglobin 12.4 g/dl (14.0-18.0); Mean Corpuscular HGB Conc 33 g/dl (31-36); Mean Corpuscular Hemoglobin 35 pg (27-31); Mean Corpuscular Volume 107 fL (80-94); Mean Platelet Volume 9 um3 (7.4-10.4); Red Blood Count 3.56 10^6/ul (4.0-5.4); Red Cell Distribution Width 20 % (10.5-15); White Blood Count 16.9 10^3/ul (3.5-10.8)
[2016-07-14 07:45] LABS: BUN/Creatinine Ratio 34.3 (8-20); Calcium 8.3 mg/dL (8.6-10.3); EGFR Non-African American 64.5 (>60); Potassium 3.5 mmol/L (3.5-5.0)
[2016-07-14] MEDS: Hydrocortisone INJ* 100 MG VIAL IV SCH (09:21)
[2016-07-14] MEDS: Thiamine IV* 100 MG/ML 2 ML VIAL IV SCH (09:21)
--- NOTE | 2016-07-14 11:58 | PN ---
Subjective Date of Service: 07/14/16 Interval History: Patient was restless overnight and unable to cooperate with CPAP despite multiple attempts. He has not become alert the am. He appears uncomfortable. Complains of buttocks pain. Objective Active Medications: Hydrocortisone Sodium Succinate (Solu-Cortef*) 100 mg IV DAILY [facility] Last Admin: 07/14/16 09:21 Dose: 100 mg Hydromorphone HCl (Dilaudid Iv*) 0.5 mg IV Q2H PRN PRN Reason: PAIN Last Admin: 07/14/16 09:21 Dose: 0.5 mg Piperacillin Sod/Tazobactam Sod (Zosyn 3.375 Gm In Ns Premix*) 3.375 gm in 100 mls @ 25 mls/hr IVPB Q8H [facility] Last Admin: 07/14/16 03:16 Dose: 25 mls/hr Lactated Ringer's (Lactated Ringers 1000 Ml Bag*) 1,000 mls @ 75 mls/hr IV PER RATE [facility] Last Admin: 07/14/16 01:30 Dose: 75 mls/hr Levothyroxine Sodium (Synthroid Inj*) 37.5 mcg IV 0600 [facility] Last Admin: 07/14/16 06:20 Dose: 37.5 mcg Metoprolol Tartrate (Lopressor Iv*) 5 mg IV Q6H PRN PRN Reason: TACHYCARDIA Quetiapine Fumarate (Seroquel Tab*) 50 mg PO BEDTIME [facility] Last Admin: 07/13/16 20:53 Dose: 50 mg Thiamine HCl (Vitamin B1 Iv*) 100 mg IV DAILY [facility] Last Admin: 07/14/16 09:21 Dose: 100 mg Vital Signs: Temp Pulse Resp BP Pulse Ox 96.3 F 78 20 143/65 99 07/14/16 05:37 07/14/16 08:17 07/14/16 09:21 07/14/16 08:17 07/14/16 08:17 Oxygen Devices in Use Now: Nasal Cannula Appearance: Uncomfortable and ill appearing elderly gentleman who is confused and restless. Accompanied by his Neck: NL Appearance and Movements; NL JVP Respiratory: Symmetrical Chest Expansion and Respiratory Effort, Clear to Auscultation Cardiovascular: NL Sounds; No Murmurs; No JVD, RRR Abdominal: NL Sounds; No Tenderness; No Distention Extremities: No Edema Skin: No Rash or Ulcers Neurological: - - encephalopathic Result Diagrams: 07/14/16 07:11 07/14/16 07:11 Additional Lab and Data: Vital Signs: Temp Pulse Resp BP Pulse Ox 97.2 F 93 14 126/79 95 07/13/16 06:25 07/13/16 08:18 07/13/16 08:18 07/13/16 08:18 07/13/16 08:27 Microbiology and Other Data: Microbiology 07/10/16 13:45 Nasal Screen MRSA (PCR)(CINTIHA) - Final Nasal Mrsa Negative 07/10/16 13:45 Influenza Types A,B Antigen (CINTHIA) - Final Nasal Specimen received for Influenza A/B Molecular testing Diagnostic Imaging: CXR 07/13 - NAD, cardiomegaly Repeat CXR 07/13 - ?R basilar infiltrate Echo - global LV hypokinesis, EF 20-25% Assess/Plan/Problems-Billing Assessment: This is an 89 yo male with dementia, BPH and recurrent UTI admitted with septic shock secondary to ESBL EColi bacteremia of a presumed urinary source. - Patient Problems (1) Septic shock Comment: Resolved Lactic acidosis has finally resolved (2) E. coli septicemia Comment: ESBL producing organism Likely urinary origin, although urine culture has not been completed Repeat blood cultures have been repeated and pending Cont Zosyn (3) Encephalopathy Comment: He was much more alert yesterday and able to swallow He is minimally responsive today and appears incredibly uncomfortable Likely toxic secondary to sepsis (4) Hypoxia Comment: Likely multifactorial, no hypercapneia noted on yesterday's ABG JUAN ANTONIO, but patient is not tolerating CPAP Severe cardiomyopathy, appears compensated at this time ?aspiration PNA Cont supp O2 (5) RICHARD (acute kidney injury) Comment: resolving Secondary to sepsis (6) Dysphagia Comment: Likely related to resolving encephalopathy Failed swallow evaluation with speech therapy yesterday Patient will be re-evaluated today Maintain NPO status at this time (7) Atrial fibrillation Comment: Rate controlled Anticoagulation has been held at admission Question resuming anticoagulation due to bleeding risk related to fall risk secondary to dementia (8) Postoperative hypopituitarism Comment: Receiving stress dose hydrocortisone Will start to taper hydrocortisone (9) BPH (benign prostatic hyperplasia) Comment: Tucker in place with frequent UTIs Status and Disposition: Inpatient. Patient appears to be declining and had a very long conversation with his today. She would like to consider Hospice services. Patient was evaluated by Palliative Care physician yesterday. Patient's desires discharge to [facility]. Coordinating position and mattress options with nursing to improve comfort.
[2016-07-14] MEDS: Morphine INJ* 2 MG/ML 1 ML SYRINGE IV PRN (19:55)
[2016-07-15] MEDS: Morphine INJ* 2 MG/ML 1 ML SYRINGE IV PRN ×2 (00:40→08:18)
--- NOTE | 2016-07-15 02:55 | DS ---
DISCHARGE SUMMARY: DATE OF ADMISSION: 07/10/16 DATE OF DISCHARGE: 07/15/16 PRIMARY CARE PROVIDER: Dr. Kan. CONSULTING AUTOMATIC PILOT MECHANIC: Tammie Fried MD. DISCHARGING PROVIDER: OPAL Boyd SUPERVISING PHYSICIAN: Mary Pierre MD.* (DICTATED BY OPAL BOYD) PRIMARY DISCHARGE DIAGNOSES: 1. Septic shock, secondary to ESBL producing E. coli septicemia of a presumed urinary source. 2. Toxic encephalopathy, likely secondary to sepsis. 3. Hypoxia - likely multifactorial, secondary to untreated obstructive sleep apnea, severe cardiomyopathy, and possible aspiration pneumonia. 4. Acute systolic heart failure, now compensated with an ejection fraction of 20% to 25%. 5. Acute kidney injury, now resolved. 6. Dysphagia, secondary to encephalopathy. 7. Hospice care. SECONDARY DISCHARGE DIAGNOSES: 1. Atrial fibrillation, rate controlled. Anticoagulation has been discontinued. 2. Postoperative hypopituitarism, maintained on levothyroxine and hydrocortisone. 3. Benign prostatic hypertrophy with chronic urinary obstruction and frequent urinary tract infections. DISCHARGE MEDICATIONS: 1. Hydrocortisone 20 mg p.o. daily. 2. Levothyroxine 125 mcg p.o. daily. 3. Morphine oral solution 10 mg p.o. q.2 hours as needed for pain and agitation. 4. Scopolamine patch 1.5 mg patch apply transdermally every 3 days. HOSPITAL IMAGIN. Chest x-ray shows cardiomegaly with bibasilar atelectasis. 2. Chest x-ray, 07/11/16, shows cardiomegaly and mild pulmonary interstitial edema and linear atelectasis at the left lung base. 3. Chest x-ray, 07/13/16, shows cardiomegaly. 4. Chest x-ray, 07/13/16, later in the day shows a small right basilar infiltrate suggestive of possible atelectasis versus consolidation. 5. Transthoracic echocardiogram shows severely decreased left ventricular systolic function with ejection fraction estimated at 20% to 25% with moderate mitral regurg and right ventricular systolic pressure measured at 39 mmHg. Right atrium and left atrium are both severely dilated. 6. EKG demonstrates atrial fibrillation with a left bundle-branch block. HOSPITAL COURSE: This is an 89-year-old gentleman with a history of dementia as well as BPH, who was quite functional up until about 3 months ago, who was at [facility] for subacute rehab for about 2 to 3 weeks prior to his presentation in the emergency department. The patient was noted to be unresponsive and transported to the emergency room for further evaluation. When the patient reached the emergency department, he appeared to be severely hypertensive. Initially, white blood cell count was just mildly elevated to 12.5. Initial blood gas demonstrated what appeared to be a respiratory alkalosis with a pCO2 of 15 and a pH of 7.45. Initial BUN was elevated at 33 with a creatinine of 1.59 and initial lactic acid was 10.4. The patient was subsequently admitted to ICU. His blood pressure quickly fell and he required Levophed to maintain appropriate perfusion. Blood cultures grew E. coli which positive for ESBL in 4 of 4 bottles. Urinalysis was not completed, but this was presumed to be of a urinary source. At the time of admission, the patient was in rapid atrial fibrillation, started on an amiodarone drip. He eventually became rate controlled with beta-silvana. The patient was treated with Zosyn, which E. coli was sensitive to and lactic acid remained elevated for approximately 48 hours after admission, but with a trend towards improvement. The patient was profoundly encephalopathic for approximately 48 hours following admission after which point, his level of consciousness began to improve. He initially failed a swallow evaluation, but 24 hours later was able to participate and pass the evaluation without aspiration. Unfortunately, later that same day, the patient became more encephalopathic again. There was some concern as to whether he may have been experiencing hypercapnic respiratory failure and a repeat ABG was performed. This ABG was essentially within normal limits. Repeat chest x- ray suggested the possibility of a right basilar infiltrate question whether he may have aspirated earlier in the day. Following day, the patient's level of consciousness did not improve again and the patient appeared to be persistently restless and quite uncomfortable. With the patient's baseline mental status being compromised with dementia given his advanced age and severity of his illness, felt that discussing palliative services was indicated. The patient's was initially resistant to the idea , but after seeing failure of his mental status to improve back to his prior baseline, she agreed that hospice services were most appropriate to maintain his dignity and comfort, which is what she wished most of all. Also of note, the patient has been profoundly hypoxic throughout his hospital stay without significant infiltrate appreciated on earlier chest x-rays. He did have some evidence of earlier fluid overload, but even when euvolemic, his oxygen saturations were difficult to maintain. He did have a history of obstructive sleep apnea and was uncooperative with the use of CPAP and due to his confusion, he frequently takes the mask off and despite attempts at reorientation and securing of the mask by nursing staff, he did not keep it in place. An echocardiogram was performed, which demonstrated severe cardiomyopathy with an ejection fraction estimated at 20% to 25%. Last echocardiogram available for review is from 2007, which was essentially within normal limits at that time. DISPOSITION: The patient is being discharged to [facility]. The patient's , children, and brothers are all in agreement with this decision. Please see medication list as described above. OPAL BOYD CC: Dr. Kan* [id number]/CPS #: [id number] DOROTHEA
[2016-07-15] MEDS: Piperac/Tazob 3.375 gm in NS* 3.375 GM/100 ML BAG IVPB SCH (04:04)
[2016-07-15] MEDS: Levothyroxine INJ* 100 MCG/5 ML VIAL IV SCH (06:17)
[2016-07-15] MEDS: Thiamine IV* 100 MG/ML 2 ML VIAL IV SCH (07:55)
[2016-07-15] MEDS: Hydrocortisone INJ* 100 MG VIAL IV SCH (07:55)
[2016-07-15 08:08] VITALS: BP 135/75
== END 2016-07-15 09:40 | disposition hospice, inpatient (51) | DRG 871 ==
LOC: ED 07:03 → ICU 07:44 → MED 07-12 11:44
PROVIDERS: ADMIT Internal Medicine Critical Care Medicine; ATTEND Internal Medicine
DX: A41.51 Sepsis due to Escherichia coli [E. coli] (principal); G92 Toxic encephalopathy; J69.0 Pneumonitis due to inhalation of food and vomit; J96.92 Respiratory failure, unspecified with hypercapnia; R65.21 Severe sepsis with septic shock; E87.2 Acidosis; J90 Pleural effusion, not elsewhere classified; I50.21 Acute systolic (congestive) heart failure; N17.9 Acute kidney failure, unspecified; E87.3 Alkalosis; R13.10 Dysphagia, unspecified; I42.9 Cardiomyopathy, unspecified; N39.0 Urinary tract infection, site not specified; N13.8 Other obstructive and reflux uropathy; R31.9 Hematuria, unspecified; I49.9 Cardiac arrhythmia, unspecified; Z66 Do not resuscitate; E11.9 Type 2 diabetes mellitus without complications; E03.9 Hypothyroidism, unspecified; Z95.810 Presence of automatic (implantable) cardiac defibrillator; Z86.010 Personal history of colon polyps; Z89.012 Acquired absence of left thumb; F03.90 Unspecified dementia, unspecified severity, without behavioral disturbance, psychotic disturbance, mood disturbance, and anxiety; I48.91 Unspecified atrial fibrillation; Z87.440 Personal history of urinary (tract) infections; G47.33 Obstructive sleep apnea (adult) (pediatric); Z51.5 Encounter for palliative care; E89.3 Postprocedural hypopituitarism; Y83.8 Other surgical procedures as the cause of abnormal reaction of the patient, or of later complication, without mention of misadventure at the time of the procedure; N40.1 Benign prostatic hyperplasia with lower urinary tract symptoms; I34.0 Nonrheumatic mitral (valve) insufficiency; I44.7 Left bundle-branch block, unspecified; E87.6 Hypokalemia
CPT/HCPCS: 36415; 36600; 71010; 80048; 80053; 82550; 82803; 83605; 83880; 84484; 85025; 85027; 85060; 85384; 85610; 85652; 85730; 86140; 86141; 87040; 87077; 87186; 87205; 87502; 87641; 93005; 93306; 94760; A9270-GY; G8996-GN-CK; G8996-GN-CN; G8997-GN-CJ; G8997-GN-CK; J0153; J0282; J1170; J1630; J1720; J2270; J2543; J3010; J3480